=== PATIENT | female | born 1985 | race Caucasian/White ===

== ENCOUNTER 2017-01-27 19:04 | Emergency (ER) | payer MEDICAID ==
[~2017-01-27] VITALS: Ht 162.6 cm; Wt 60.0 kg
[2017-01-27 19:58] VITALS: BP 97/54
[2017-01-27] MEDS ORDERED: SODIUM CHLORIDE 0.9% 1,000 ML IV ONE (20:08)
[2017-01-27] MEDS ORDERED: ONDANSETRON HCL 4MG/2ML VIAL IV STA (20:08)
[2017-01-27 20:41] LABS: BASOPHILS % 0.3 % (0.0-2.0); DIFFERENTIAL COMMENT 0; EOSINOPHILS % 0.8 % (0.0-5.0); HEMATOCRIT. 30.4 % (36.0-48.0); HEMOGLOBIN. 10.2 g/dL (12.0-16.0); LYMPHOCYTES % 29.4 % (20.0-50.0); MEAN CORPUSCULAR HEMOGLOBIN 26.5 pg (28.0-32.0); MEAN CORPUSCULAR HGB CONC 33.6 g/dL (31.0-37.0); MEAN CORPUSCULAR VOLUME 78.8 fL (81.0-99.0); MEAN PLATELET VOLUME 8.8 fl (7.4-10.4); MONOCYTES % 8.8 % (2.0-8.0); NEUTROPHILS % 60.7 % (40.0-76.0); PLATELET 230 x1000/uL (130-400); RED BLOOD CELL COUNT 3.86 mill/uL (4.2-5.4); RED CELL DISTRIBUTION WIDTH 14.9 % (11.6-14.6); WHITE BLOOD COUNT 9.4 x1000/uL (4.5-11.0)
[2017-01-27 20:44] LABS: CHLORIDE 104 mEq/L (98-107); INDEX HEMOLYSI 1 (1-3); INDEX ICTERIC 1 (1-4); INDEX LIPEMIC 1 (1-3)
[2017-01-27 20:53] LABS: PROTHROMBIN TIME 10.2 sec
[2017-01-27 20:56] LABS: ALANINE AMINOTRANSFERASE 13 IU/L (13-61); ALBUMIN 2.6 g/dL (3.4-5.0); ANION GAP 10; CALCIUM 7.7 mg/dL (8.5-10.1); CARBON DIOXIDE 28 mEq/L (21-32); LIPASE 173 IU/L (73-393); UREA NITROGEN BLOOD 8 mg/dL (7-21); eGFR > 60 mL/min (>60)
== END 2017-01-27 22:53 | disposition left against medical advice (07) ==
LOC: ER 19:07
DX: O26.892 Other specified pregnancy related conditions, second trimester (principal); R10.31 Right lower quadrant pain; R11.2 Nausea with vomiting, unspecified; Z90.49 Acquired absence of other specified parts of digestive tract; Z98.890 Other specified postprocedural states; Z3A.17 17 weeks gestation of pregnancy
CPT/HCPCS: 36415; 76857; 80053; 83690; 84702; 85025; 85610; 99285; Z7610; J7030

== ENCOUNTER 2017-05-19 21:35 | Emergency (ER) | payer MEDICAID ==
[~2017-05-19] VITALS: Ht 157.5 cm; Wt 57.0 kg
[2017-05-19] MEDS ORDERED: ACETAMINOPHEN 500MG TABLET PO ONE (22:00)
[2017-05-19 22:45] VITALS: BP 122/68
[2017-05-19] MEDS ORDERED: LIDOCAINE HCL 1% 20ML VIAL (Pyxis) INJ MC ONE (23:30)
[2017-05-19] MEDS ORDERED: BACITRACIN ZINC OINT UDPKT TOP ONE (23:30)
[2017-05-19 23:53] LABS: HCG SCREEN POSITIVE
== END 2017-05-20 01:06 | disposition home or self-care (01) ==
LOC: ER 21:57
DX: S61.216A Laceration without foreign body of right little finger without damage to nail, initial encounter (principal); W23.0XXA Caught, crushed, jammed, or pinched between moving objects, initial encounter; Y93.89 Activity, other specified; Y92.090 Kitchen in other non-institutional residence as the place of occurrence of the external cause; Z33.1 Pregnant state, incidental
CPT/HCPCS: 12001; 84703; 99283; J3490; Z7610